=== PATIENT | female | born 1985 | race Caucasian/White ===

== ENCOUNTER 2022-05-15 10:45 | Outpatient (CLI) | payer BC, SELFPAY | END 2022-05-15 10:46 | disposition home or self-care (01) | PROVIDERS: PCP Family Medicine; Visit Provider Family Medicine | DX: Z00.00 Encounter for general adult medical examination without abnormal findings (principal); Z13.6 Encounter for screening for cardiovascular disorders; Z13.1 Encounter for screening for diabetes mellitus | CPT/HCPCS: 80048; 80061 ==

== ENCOUNTER 2024-10-31 10:57 | Outpatient (CLI) | payer OTHER, SELFPAY | END 2024-10-31 10:58 | disposition home or self-care (01) | LOC: LKVREF 10:59 | PROVIDERS: PCP Family Medicine; Visit Provider Family Medicine | DX: Z79.3 Long term (current) use of hormonal contraceptives (principal) | CPT/HCPCS: 84443 ==

== ENCOUNTER 2025-03-06 18:50 | Outpatient (CLI) | payer OTHER, SELFPAY ==
--- NOTE | 2025-03-06 18:40 | CRLHL7_ITS ---
For Patients: As a result of the Century Cures Act, medical imaging exams and procedure reports are released immediately into your electronic medical record. You may view this report before your referring provider. If you have questions, please contact your health care provider. INDICATION: BILATERAL SCREENING MAMMOGRAM, ASYMPTOMATIC 39 Y/O FEMALE COMPARISON: BASELINE TECHNIQUE: Digital mammogram in CC and MLO projections including computer-aided detection (CAD) and tomosynthesis. BREAST COMPOSITION: The breasts are heterogeneously dense, which may obscure small masses. FINDINGS: No suspicious findings. ASSESSMENT: BI-RADS 2 Benign RECOMMENDATION: Annual screening mammogram. A lay language report of this examination will be provided to the patient. Dictated by: Steven Fields MD @ 03/07/2025 09:27:07 (Electronically Signed)
== END 2025-03-06 18:51 | disposition home or self-care (01) ==
LOC: MAMMO 18:50
PROVIDERS: PCP Family Medicine; Visit Provider Family Medicine
DX: Z12.31 Encounter for screening mammogram for malignant neoplasm of breast (principal); R92.333 Mammographic heterogeneous density, bilateral breasts
CPT/HCPCS: 77063; 77067